=== PATIENT | female | born 1970 | race Caucasian/White ===

== ENCOUNTER 2019-04-11 08:11 | Day surgery (SDC) | payer BC, OTHER ==
[2019-04-11 08:33] VITALS: BMI 32.9
[2019-04-11] MEDS ORDERED: LIDOCAINE HCL/PF 2% SDV 5ML VIAL ONE (08:43)
[2019-04-11] MEDS ORDERED: PROPOFOL 20 ML ONE ×2 (08:43)
[2019-04-11 10:07] VITALS: TEMP 97.6
[2019-04-11 10:12] VITALS: BP 130/74; PULSE 70
--- NOTE | 2019-04-14 16:30 | PATH ---
Surgical Pathology Report Patient Name: DIALLO BEAULIEU [facility]. Rec. #: [id number] /Age/Gender: 1970 (Age: 48) / F Account: [id number] Location: [facility] Taken: 04/11/2019 Received: 04/11/2019 Reported: 04/14/2019 Physicians: Bob Akers M.D. Specimen(s) Received A: BX GASTRIC ANTRUM LESSER CURVATURE B: BX GASTRIC ANTRUM GREATER CURVATURE C: BX ANGULARIS D: BX GASTRIC BODY LESSER CURVATURE E: BX GASTRIC BODY GREATER CURVATURE F: GASTRIC POLYP G: BX ESOPHAGUS Clinical History Gastrointestinal metaplasia, history of Uribe's Postoperative diagnosis: Irregular Z line, gastric polyp, rule out gastrointestinal metaplasia Final Diagnosis A. GASTRIC ANTRUM, LESSER CURVATURE, BIOPSY: MILD CHRONIC GASTRITIS WITH FOCAL INTESTINAL METAPLASIA. IMMUNOSTAIN IS NEGATIVE FOR H. PYLORI ORGANISMS. B. GASTRIC ANTRUM, GREATER CURVATURE, BIOPSY: MILD CHRONIC GASTRITIS. IMMUNOSTAIN IS NEGATIVE FOR H. PYLORI ORGANISMS. C. ANGULARIS, BIOPSY: MILD CHRONIC GASTRITIS. IMMUNOSTAIN IS NEGATIVE FOR H. PYLORI ORGANISMS. D. GASTRIC BODY, LESSER CURVATURE, BIOPSY: MILD CHRONIC GASTRITIS. IMMUNOSTAIN IS NEGATIVE FOR H. PYLORI ORGANISMS. E. GASTRIC BODY GREATER CURVATURE, BIOPSY: MILD CHRONIC GASTRITIS. IMMUNOSTAIN IS NEGATIVE FOR H. PYLORI ORGANISMS. F. GASTRIC POLYP, BIOPSY: GASTRIC FUNDIC GLAND POLYP. IMMUNOSTAIN IS NEGATIVE FOR H. PYLORI ORGANISMS. G. ESOPHAGUS, BIOPSY: ESOPHAGOGASTRIC JUNCTIONAL (SQUAMOCOLUMNAR) MUCOSA SHOWING INTESTINAL METAPLASIA AND MODERATE CHRONIC INFLAMMATION, COMPATIBLE WITH URIBE'S ESOPHAGUS IN CONJUNCTION WITH APPROPRIATE ENDOSCOPIC FINDINGS. NEGATIVE FOR DYSPLASIA. Electronically Signed Fabiola Lozano M.D. Gross Description A. Received in formalin, labeled "biopsy gastric antrum lesser curvature" is a saldaña, irregular portion of soft tissue measuring 0.3 cm. in greatest dimension. The specimen is submitted in toto in one cassette. B. Received in formalin, labeled "biopsy gastric antrum greater curvature" are 2 saldaña, irregular portions of soft tissue averaging 0.2 cm. in greatest dimension. The specimens are submitted in toto in one cassette. C. Received in formalin, labeled "biopsy angularis" are 2 saldaña, irregular portions of soft tissue averaging 0.3 cm. in greatest dimension. The specimens are submitted in toto in one cassette. D. Received in formalin, labeled "biopsy gastric body lesser curvature" are 2 saldaña, irregular portions of soft tissue measuring 0.2 and 0.4 cm. in greatest dimension. The specimens are submitted in toto in one cassette. E. Received in formalin, labeled "biopsy gastric body greater curvature" are 2 saldaña, irregular portions of soft tissue measuring 0.2 and 0.4 cm. in greatest dimension. The specimens are submitted in toto in one cassette. F. Received in formalin, labeled "biopsy gastric polyp" is a saldaña, irregular portion of soft tissue measuring 0.3 cm. in greatest dimension. The specimen is submitted in toto in one cassette. G. Received in formalin, labeled "biopsy esophagus" are 4 saldaña, irregular portions of soft tissue ranging from 0.2-0.5 cm. in greatest dimension. The specimens are submitted in toto in one cassette. 04/13/2019 [facility]04/13/2019
== END 2019-04-11 10:10 | disposition home or self-care (01) ==
LOC: FASU-ENDO 08:11
PROVIDERS: ATTEND Internal Medicine Gastroenterology
PROC: 0DB68ZX Excision of Stomach, Via Natural or Artificial Opening Endoscopic, Diagnostic (ICD-10-PCS; 2019-04-11)
PROC: 0DB58ZX Excision of Esophagus, Via Natural or Artificial Opening Endoscopic, Diagnostic (ICD-10-PCS; principal; 2019-04-11 09:16)
DX: K29.50 Unspecified chronic gastritis without bleeding (principal); K31.7 Polyp of stomach and duodenum; K31.9 Disease of stomach and duodenum, unspecified; K22.70 Barrett's esophagus without dysplasia; Z87.19 Personal history of other diseases of the digestive system
CPT/HCPCS: 84703; 88305-TC; 88342-TC